=== PATIENT | male | born 1960 | race Caucasian/White ===

== ENCOUNTER 2017-03-27 08:25 | Emergency (ER) | payer OTHER, BC ==
--- NOTE | 2017-03-27 08:41 | EDM.PDOC ---
ED HPI GENERAL MEDICAL PROBLEM - General Stated Complaint: CHEMICAL IN EYE Time Seen by Provider: 03/27/17 08:25 Source of Information: Reports: Patient History Limitations: Reports: No Limitations - History of Present Illness INITIAL COMMENTS - FREE TEXT/NARRATIVE: 56 years old w lashonda came to the ed shortly after hydrochloride solution, highly concentrated, went in his r eye. Pt irrigated his right eye immediately after the incident for a few minutes with NS. There was still some "buring"which made the patient to decide to coem to the ed. Pt denied other acute medical issues. Onset Date: 03/27/17 Onset Time: 08:20 Duration: Minutes:, Intermittent Location: Reports: Other (r eye) Quality: Reports: Burning Severity: Mild Improves with: Reports: Immobilization Worsens with: Reports: Movement Context: Reports: Other (highly concentrated Hypocloide in r eye) Associated Symptoms: Reports: No Other Symptoms - Related Data Allergies Allergy/AdvReac Type Severity Reaction Status Date / Time No Known Allergies Allergy Verified 03/27/17 08:47 Home Meds: Home Meds Gentamicin [Garamycin 0.3% Ophth Soln] 5 ml EYEBOTH TID 3 Days 03/27/17 [Rx] Losartan/Hydrochlorothiazide [Losartan-HCTZ 50-12.5 MG] 1 tab PO DAILY 03/27/17 [History] ED ROS GENERAL - Review of Systems Review Of Systems: See Below Constitutional: Reports: No Symptoms HEENT: Reports: Ear Pain (r eye "burning") Respiratory: Reports: No Symptoms Cardiovascular: Reports: No Symptoms Endocrine: Reports: No Symptoms GI/Abdominal: Reports: No Symptoms : Reports: No Symptoms Musculoskeletal: Reports: No Symptoms Skin: Reports: No Symptoms Neurological: Reports: No Symptoms Psychiatric: Reports: No Symptoms Hematologic/Lymphatic: Reports: No Symptoms Immunologic: Reports: No Symptoms ED EXAM GENERAL W FULL EYE - Physical Exam Exam: See Below Exam Limited By: No Limitations General Appearance: Alert, WD/WN, Mild Distress Eye Exam: Right Eye: Conjunctival Injection Visual Acuity (R) 20/: 30 Visual Acuity (L) 20/: 20 With Correction: No Eyelids: Bilateral: Normal Appearance Conjunctiva & Sclera: Right: Injected Cornea Exam: Bilateral: Normal Appearance Extraocular Movements: Bilateral: Intact Pupils: Normal Accommodation Pupillary Size: Bilateral: 3 mm Pupillary Reaction: Bilateral: Brisk Anterior Chamber: Bilateral: Normal Appearance Ears: Normal External Exam Nose: Normal Inspection Throat/Mouth: Normal Inspection Head: Atraumatic, Normocephalic Neck: Normal Inspection, Supple, Non-Tender Respiratory/Chest: No Respiratory Distress, Lungs Clear Cardiovascular: Normal Peripheral Pulses GI/Abdominal: Normal Bowel Sounds, Soft, Non-Tender (Male) Exam: Deferred (Female) Exam: Deferred Rectal (Males) Exam: Deferred Rectal (Female) Exam: Deferred Back Exam: Normal Inspection Extremities: Normal Inspection Neurological: Alert, Oriented, CN II-XII Intact, Normal Cognition, Normal Gait Psychiatric: Normal Affect Skin Exam: Warm, Dry, Intact, Normal Color Lymphatic: No Adenopathy Course - Vital Signs Text/Narrative:: 56 years old w m came to the ed shortly after hydrochloride solution, highly concentrated, went in his r eye. Pt irrigated his right eye immediately after the incident for a few minutes with NS. There was still some "buring"which made the patient to decide to coem to the ed. Pt denied other acute medical issues. PE: Conjunctivitis r eye, chemical, no abrasion Impression: Chemical conjunctivitis. Tx: Hector Lens placement, irrigating with NS 250 cc Reexam: Improved. pH was 7.0 Plan: Gentamycin, d/c with instruction Poison Control center was called: Flush it with NS/Hector lens, check for abrasions Last Recorded V/S: Last Vital Signs Temp 36.4 C 03/27/17 08:26 Pulse 87 03/27/17 08:26 Resp 18 03/27/17 08:26 BP 141/95 H 03/27/17 08:26 Pulse Ox 99 03/27/17 08:26 - Orders/Labs/Meds Orders: Active Orders 24 hr Category Date Time Status Visual Acuity [Vision Test] [RC] ASDIRECTED Care 03/27/17 08:50 Active Departure - Departure Time of Disposition: 08:50 Disposition: Home, Self-Care 01 Condition: good Clinical Impression: Conjunctivitis Qualifiers: Conjunctivitis type: acute Acute conjunctivitis type: unspecified Laterality: right Qualified Code(s): H10.31 - Unspecified acute conjunctivitis, right eye - Discharge Information Prescriptions: Gentamicin [Garamycin 0.3% Ophth Soln] 5 ml EYEBOTH TID 3 Days Referrals: Israel Carrasco MD [Primary Care Provider] - Forms: ED Department Discharge Additional Instructions: Please apply 3 drops of gentomycin for 3 dasy in r eye. Please f/u, please come back to the ed if your symptoms get worse acutely - My Orders Last 24 Hours: My Active Orders 03/27/17 08:50 Visual Acuity [Vision Test] [RC] ASDIRECTED - Assessment/Plan Last 24 Hours: My Active Orders 03/27/17 08:50 Visual Acuity [Vision Test] [RC] ASDIRECTED
[2017-03-27 09:24] VITALS: BP 141/95
== END 2017-03-27 09:00 | disposition home or self-care (01) ==
LOC: FB.ED 08:25
DX: H10.31 Unspecified acute conjunctivitis, right eye (principal); Z79.899 Other long term (current) drug therapy
CPT/HCPCS: 99283

== ENCOUNTER 2024-02-27 07:02 | Day surgery (SDC) | payer OTHER ==
[~2024-02-27 07:02] MED LIST: Sodium Chloride 0.9% 10 ML Syringe FLUSH PRN
[2024-02-27] MEDS ORDERED: Midazolam 1 MG/ML 2 ML SDV IV ONE (07:03)
[2024-02-27] MEDS ORDERED: fentaNYL 100 MCG/2 ML SDV IV ONE (07:03)
[2024-02-27] MEDS ORDERED: Propofol 200 MG/20 ML SDV IV ONE (07:03)
[2024-02-27] MEDS: Lactated Ringers 1,000 ML IV SCH (07:45)
== END 2024-02-27 09:46 | disposition home or self-care (01) ==
LOC: FB.SDS 07:02
PROVIDERS: ATTEND Surgery
DX: Z12.11 Encounter for screening for malignant neoplasm of colon (principal); I10 Essential (primary) hypertension; Z79.899 Other long term (current) drug therapy; E78.00 Pure hypercholesterolemia, unspecified; L21.9 Seborrheic dermatitis, unspecified; Z80.0 Family history of malignant neoplasm of digestive organs
CPT/HCPCS: 00812; J2250; J2704; J3010; J7120